=== PATIENT | female | born 1940 | race Caucasian/White ===

== ENCOUNTER → 2017-11-12 | Outpatient (CLI) | payer MEDICARE ==
[~2017-11-12] MED LIST: ASPI-555 PO; CAPT25TA3 PO; FURO-151 PO; GABA100C PO; HYDR-4153 PO; HYDR25TA PO; LANS30CA53 PO; LOVA40TA2 PO; METOPROL PO; PANT40TA25 PO; PRAS1TAB3 PO; SUCR1ORA3 PO; [UNRECOGNIZED DRUG - OTHER] PO
== END | disposition home or self-care (01) ==
LOC: RAH 12:44
PROVIDERS: ATTEND Internal Medicine
DX: Z12.31 Encounter for screening mammogram for malignant neoplasm of breast (principal)
CPT/HCPCS: 77067

== ENCOUNTER 2019-10-25 12:48 | Emergency (ER) | payer MEDICARE ==
[2019-10-25 14:47] LABS: BASOPHILS % (AUTO) 0.3 % (0.0-5.0); EOSINOPHILS % (AUTO) 2.3 % (0.0-8.0); HEMATOCRIT 40.9 % (36-48); LYMPHOCYTES % (AUTO) 27.8 % (21.0-51.0); MEAN CORPUSCULAR HEMOGLOBIN 30.6 pg (27.0-33.0); MEAN CORPUSCULAR HGB CONC 31.8 g/dL (32.0-36.0); MEAN CORPUSCULAR VOLUME 96.2 fL (79-99); MONOCYTES % (AUTO) 7.6 % (3.0-13.0); NEUTROPHILS % (AUTO) 61.6 % (40.0-77.0); PLATELET COUNT (AUTO) 238 K/uL (130-400); RED BLOOD CELL COUNT(AUTO) 4.25 MIL/uL (4.00-5.50); RED CELL DISTRIBUTION WIDTH 13.1 % (11.0-15.5); WHITE BLOOD COUNT (AUTO) 10.7 K/uL (4.8-10.8)
[2019-10-25 15:07] LABS: CREATININE 2.1 mg/dL (0.5-1.5); POTASSIUM 4.3 mmol/L (3.5-5.1)
[2019-10-25 15:20] LABS: HEMOGLOBIN A1C 6.6 % (4.0-6.0)
== END 2019-10-25 15:45 | disposition home or self-care (01) ==
LOC: EDH 12:48
DX: L03.119 Cellulitis of unspecified part of limb (principal); I10 Essential (primary) hypertension; E78.00 Pure hypercholesterolemia, unspecified; E11.9 Type 2 diabetes mellitus without complications
CPT/HCPCS: 36415; 73620; 80048; 83036; 85025

== ENCOUNTER → 2019-12-22 | Outpatient (CLI) | payer MEDICARE ==
[~2019-12-22] MED LIST changes: +CALC-190 PO; -CAPT25TA3 PO; +CEPH250 PO; -HYDR25TA PO; +OMEP20TA25 PO; +VITA400T9 PO
== END | disposition home or self-care (01) ==
LOC: RAH 08:43
PROVIDERS: ATTEND Internal Medicine
DX: Z12.31 Encounter for screening mammogram for malignant neoplasm of breast (principal)
CPT/HCPCS: 77067

== ENCOUNTER 2020-01-02 19:29 | Emergency (ER) | payer MEDICARE ==
[2020-01-02] MEDS ORDERED: DEXAMETHASONE SOD PHOSPHATE 4 MG/ML 1ML VIAL ONE (19:55)
[2020-01-02] MEDS ORDERED: TRAMADOL HCL 50 MG TABLET ONE (19:57)
[2020-01-02 20:22] LABS: BASOPHILS % (AUTO) 0.3 % (0.0-5.0); EOSINOPHILS % (AUTO) 0.1 % (0.0-8.0); LYMPHOCYTES % (AUTO) 12.9 % (21.0-51.0); MEAN CORPUSCULAR HEMOGLOBIN 29.7 pg (27.0-33.0); MEAN CORPUSCULAR HGB CONC 32.1 g/dL (32.0-36.0); MEAN CORPUSCULAR VOLUME 92.7 fL (79-99); MONOCYTES % (AUTO) 7.5 % (3.0-13.0); NEUTROPHILS % (AUTO) 78.7 % (40.0-77.0); PLATELET COUNT (AUTO) 267 K/uL (130-400); RED BLOOD CELL COUNT(AUTO) 4.64 MIL/uL (4.00-5.50); RED CELL DISTRIBUTION WIDTH 14.2 % (11.0-15.5); WHITE BLOOD COUNT (AUTO) 14.5 K/uL (4.8-10.8)
[2020-01-02 20:44] LABS: CREATININE 1.7 mg/dL (0.5-1.5); POTASSIUM 3.3 mmol/L (3.5-5.1)
[2020-01-02 20:49] LABS: ALBUMIN 2.8 g/dL (3.5-5.0); BILIRUBIN,TOTAL 0.7 mg/dL (0.2-1.0); TOTAL PROTEIN, SERUM 7.6 g/dL (6.0-8.3)
== END 2020-01-02 21:48 | disposition home or self-care (01) ==
LOC: EDH 19:29
DX: M25.531 Pain in right wrist (principal); M79.641 Pain in right hand; E11.9 Type 2 diabetes mellitus without complications; I10 Essential (primary) hypertension; E78.00 Pure hypercholesterolemia, unspecified; Z79.899 Other long term (current) drug therapy; W18.39XA Other fall on same level, initial encounter; Y93.89 Activity, other specified; Y92.091 Bathroom in other non-institutional residence as the place of occurrence of the external cause; Y99.8 Other external cause status
CPT/HCPCS: 36415; 80053; 85025; 96372; 99283; J1100

== ENCOUNTER 2020-04-14 20:40 | Inpatient (IN) | payer MEDICARE ==
[~2020-04-14] VITALS: Ht 175.3 cm; Wt 109.3 kg
[~2020-04-14 20:40] MED LIST changes: -ASPI-555 PO; +ASPI-556 PO; -PANT40TA25 PO; +PANT40TA54 PO
[2020-04-14 21:17] LABS: BASOPHILS % (AUTO) 0.5 % (0.0-5.0); EOSINOPHILS % (AUTO) 1.1 % (0.0-8.0); HEMATOCRIT 44.3 % (36-48); LYMPHOCYTES % (AUTO) 4.8 % (21.0-51.0); MEAN CORPUSCULAR HEMOGLOBIN 29.3 pg (27.0-33.0); MEAN CORPUSCULAR HGB CONC 31.8 g/dL (32.0-36.0); MEAN CORPUSCULAR VOLUME 92.1 fL (79-99); MONOCYTES % (AUTO) 2.8 % (3.0-13.0); NEUTROPHILS % (AUTO) 90.1 % (40.0-77.0); PLATELET COUNT (AUTO) 347 K/uL (130-400); RED BLOOD CELL COUNT(AUTO) 4.81 MIL/uL (4.00-5.50); RED CELL DISTRIBUTION WIDTH 14.7 % (11.0-15.5); WHITE BLOOD COUNT (AUTO) 19.2 K/uL (4.8-10.8)
[2020-04-14 21:23] LABS: CREATININE 1.6 mg/dL (0.5-1.5); POTASSIUM 4.1 mmol/L (3.5-5.1)
[2020-04-14 21:28] LABS: ALBUMIN 2.8 g/dL (3.5-5.0); BILIRUBIN,TOTAL 0.4 mg/dL (0.2-1.0); TOTAL PROTEIN, SERUM 7.6 g/dL (6.0-8.3)
[2020-04-14 22:55] LABS: BILIRUBIN,URINE Small (NEGATIVE); COLOR,URINE Dark Yellow (YELLOW); GLUCOSE, URINE (UA) Negative (NEGATIVE); KETONES,URINE Trace mg/dL (NEGATIVE); LEUKOCYTE ESTERASE ,URINE Trace (NEGATIVE); NITRATE,URINE Negative (NEGATIVE); OCCULT BLOOD,URINE Negative (NEGATIVE); PROTEIN,URINE POS 2+ mg/dL (NEGATIVE)
[2020-04-14 22:56] LABS: APPEARANCE,URINE CLOUDY (CLEAR)
[2020-04-14 23:06] LABS: BACTERIA,URINE Few /HPF (None Seen); RBC,URINE None Seen /HPF (0-1); SQUAMOUS EPITHELIAL CELL,UR Many /HPF (0-2); WBC,URINE 0-1 /HPF (0-1)
[2020-04-14] MEDS ORDERED: FUROSEMIDE 10 MG/ML 2ML VIAL ONE (23:45)
[2020-04-15 00:36] LABS: ABG BASE EXCESS 1.8 mmol/L (-2.0-3.0); ABG HCO3 25.7 mmol/L (21.0-28.0); ABG OXYGEN SATURATION 96.1 % (95.0-99.0); ABG PCO2 38 mmHg (32-45)
[2020-04-15] MEDS ORDERED: CEFTRIAXONE SODIUM 1 GM ONE (00:45)
[2020-04-15] MEDS ORDERED: HYDRALAZINE HCL 20 MG/ML VIAL IV PRN (01:30)
[2020-04-15] MEDS ORDERED: ONDANSETRON HCL 4 MG/2 ML VIAL IV PRN (01:30)
[2020-04-15] MEDS ORDERED: MORPHINE SULFATE 2 MG/ML 1ML SYG IV PRN (01:30)
[2020-04-15] MEDS ORDERED: ACETAMINOPHEN 325 MG TAB PO PRN ×2 (01:30)
[2020-04-15] MEDS: CEFTRIAXONE SODIUM 1 GM IV SCH (01:30)
[2020-04-15] MEDS ORDERED: LACTULOSE 20 GM/30 ML UDCUP PO PRN (01:30)
[2020-04-15] MEDS ORDERED: IPRATROPIUM/ALBUTEROL SULFATE 3 ML SOLUTION IH PRN (02:15)
[2020-04-15 04:40] VITALS: BP 142/101
[2020-04-15 06:41] LABS: BASOPHILS % (AUTO) 0.4 % (0.0-5.0); EOSINOPHILS % (AUTO) 1.9 % (0.0-8.0); HEMATOCRIT 40.9 % (36-48); LYMPHOCYTES % (AUTO) 25.2 % (21.0-51.0); MEAN CORPUSCULAR HEMOGLOBIN 29.5 pg (27.0-33.0); MEAN CORPUSCULAR HGB CONC 31.8 g/dL (32.0-36.0); MEAN CORPUSCULAR VOLUME 92.7 fL (79-99); MONOCYTES % (AUTO) 4.6 % (3.0-13.0); NEUTROPHILS % (AUTO) 67.3 % (40.0-77.0); PLATELET COUNT (AUTO) 347 K/uL (130-400); RED BLOOD CELL COUNT(AUTO) 4.41 MIL/uL (4.00-5.50); RED CELL DISTRIBUTION WIDTH 14.8 % (11.0-15.5); WHITE BLOOD COUNT (AUTO) 15.9 K/uL (4.8-10.8)
[2020-04-15 06:49] LABS: CREATININE 1.7 mg/dL (0.5-1.5); POTASSIUM 3.4 mmol/L (3.5-5.1)
[2020-04-15] MEDS: INSULIN HUMULIN R 100 UNIT/ML 3ML SQ SCH ×4 (07:07→20:23)
[2020-04-15 08:14] VITALS: BP 136/68
[2020-04-15] MEDS: FAMOTIDINE 20MG TAB 20 MG TAB PO SCH ×2 (10:33→20:43)
[2020-04-15] MEDS: ENOXAPARIN SODIUM 40 MG/0.4 ML SYRINGE SQ SCH (10:34)
--- NOTE | 2020-04-15 10:39 | NUR ---
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
[2020-04-15 11:45] VITALS: BP 150/69
--- NOTE | 2020-04-15 15:29 | NUR ---
cm note met with patient and states resides at home with daughter Noris, uses rollator walker, and has an electric cart, and a handicap accessible van for transport. daughter noris and her asparagus buncher assist her as needed at home. feels safe to return back to same setting at dc. states no dc needs. Addendum: 04/15/20 at 1531 by THOMAS BRICEÑO CM Amended: Links added.
[2020-04-15 16:00] VITALS: BP 146/68
--- NOTE | 2020-04-15 16:00 | NUR ---
PRIMARY AWARE OF HOME MEDS PEND. TO RESUME
[2020-04-15] MEDS ORDERED: DOCU-116 PO (18:17)
[2020-04-15] MEDS ORDERED: METO-482 PO (18:17)
[2020-04-15] MEDS ORDERED: LOVA40TA2 PO (18:17)
[2020-04-15] MEDS ORDERED: GABA-529 PO (18:17)
[2020-04-15] MEDS ORDERED: ALLO100T PO (18:17)
[2020-04-15] MEDS ORDERED: AEC81 PO (18:17)
[2020-04-15] MEDS ORDERED: OMEP20CA12 PO (18:17)
[2020-04-15] MEDS ORDERED: FURO40TA5 PO (18:17)
[2020-04-15] MEDS ORDERED: HYDR25 PO (18:17)
[2020-04-15 19:00] VITALS: BP 131/74
[2020-04-15 23:25] VITALS: BP 131/67
[2020-04-16] VITALS (7 sets, daily range): BP systolic 122–166; BP diastolic 55–83
[2020-04-16] MEDS: CEFTRIAXONE SODIUM 1 GM IV SCH (01:03)
[2020-04-16 05:24] LABS: MEAN CORPUSCULAR HEMOGLOBIN 28.7 pg (27.0-33.0); MEAN CORPUSCULAR VOLUME 92.6 fL (79-99); RED BLOOD CELL COUNT(AUTO) 4.21 MIL/uL (4.00-5.50); RED CELL DISTRIBUTION WIDTH 14.9 % (11.0-15.5)
[2020-04-16 05:39] LABS: CREATININE 1.3 mg/dL (0.5-1.5); POTASSIUM 3.8 mmol/L (3.5-5.1)
[2020-04-16] MEDS: INSULIN HUMULIN R 100 UNIT/ML 3ML SQ SCH ×4 (05:57→20:45)
[2020-04-16] MEDS: FAMOTIDINE 20MG TAB 20 MG TAB PO SCH ×2 (08:08→20:44)
[2020-04-16] MEDS: ENOXAPARIN SODIUM 40 MG/0.4 ML SYRINGE SQ SCH (08:09)
[2020-04-16] MEDS ORDERED: FUROSEMIDE 40 MG TABLET PO SCH (12:00)
[2020-04-16] MEDS ORDERED: HYDRALAZINE HCL 25 MG TABLET ONE (12:17)
[2020-04-16] MEDS: HYDRALAZINE HCL 25 MG TABLET PO SCH ×2 (12:19→20:44)
[2020-04-16] MEDS ORDERED: DOCUSATE SODIUM 100 MG CAP PO SCH (13:30)
[2020-04-16] MEDS ORDERED: CHOL2000 PO (17:23)
[2020-04-16] MEDS: PANTOPRAZOLE SODIUM 40 MG TABLET.DR PO SCH (20:43)
[2020-04-16] MEDS: METOPROLOL TARTRATE 50 MG TAB PO SCH (20:44)
[2020-04-16] MEDS: GABAPENTIN 100 MG CAPSULE PO SCH (20:44)
[2020-04-16] MEDS ORDERED: ATORVASTATIN CALCIUM 10 MG TABLET PO SCH (21:00)
[2020-04-17] MEDS: CEFTRIAXONE SODIUM 1 GM IV SCH (01:49)
[2020-04-17 04:20] VITALS: BP 127/69
[2020-04-17] MEDS: INSULIN HUMULIN R 100 UNIT/ML 3ML SQ SCH (05:40)
[2020-04-17 08:00] VITALS: BP 108/68
[2020-04-17] MEDS ORDERED: CEFD300C3 PO (08:30)
[2020-04-17] MEDS: PANTOPRAZOLE SODIUM 40 MG TABLET.DR PO SCH (08:41)
[2020-04-17] MEDS: METOPROLOL TARTRATE 50 MG TAB PO SCH (08:41)
[2020-04-17] MEDS: GABAPENTIN 100 MG CAPSULE PO SCH (08:42)
[2020-04-17] MEDS: ENOXAPARIN SODIUM 40 MG/0.4 ML SYRINGE SQ SCH (08:43)
[2020-04-17] MEDS: HYDRALAZINE HCL 25 MG TABLET PO SCH ×2 (08:43→08:44)
[2020-04-17] MEDS ORDERED: ASPIRIN 81 MG EC TAB PO SCH (09:00)
[2020-04-17] MEDS ORDERED: ALLOPURINOL 100 MG TABLET PO SCH (09:00)
[2020-04-17] MEDS ORDERED: DOCUSATE SODIUM 100 MG CAP PO SCH (09:00)
[2020-04-17] MEDS ORDERED: FUROSEMIDE 40 MG TABLET PO SCH (09:00)
[2020-04-17 11:30] VITALS: BP 139/67
--- NOTE | 2020-04-17 12:19 | NUR ---
DISCHARGE INSTRUCTION PROVIDED TO PATIENT. PATIENT VERBALIZED UNDERSTANDING
[2020-04-18] MEDS ORDERED: FUROSEMIDE 40 MG TABLET PO SCH (09:00)
== END 2020-04-17 12:01 | disposition home or self-care (01) | DRG 291 ==
LOC: EDH 20:40 → EDHIP 04-15 01:22 → OBSVTOIN 04-15 01:22 → 4DH 04-15 02:52
PROVIDERS: ADMIT Hospitalist; ATTEND Hospitalist
DX: I13.0 Hypertensive heart and chronic kidney disease with heart failure and stage 1 through stage 4 chronic kidney disease, or unspecified chronic kidney disease (principal); I50.33 Acute on chronic diastolic (congestive) heart failure; N39.0 Urinary tract infection, site not specified; E11.22 Type 2 diabetes mellitus with diabetic chronic kidney disease; E78.5 Hyperlipidemia, unspecified; N18.9 Chronic kidney disease, unspecified; Z96.652 Presence of left artificial knee joint; Z83.3 Family history of diabetes mellitus; Z82.49 Family history of ischemic heart disease and other diseases of the circulatory system
CPT/HCPCS: 36415; 36600; 71045; 71250; 78582; 80048; 80053; 81001; 82550; 82803; 82948; 83605; 83880; 84443; 84484; 85025; 85027; 85378; 87040; 87088; 93005; 93306; 93356; 93970; 94664; 97039; A9540; A9558; G0378; J0360; J0696; J1650; J1940

== ENCOUNTER → 2020-12-08 | Outpatient (CLI) | payer MEDICARE ==
[~2020-12-08] MED LIST changes: +AEC81 PO; +ALLO100T PO; -ASPI-556 PO; -CALC-190 PO; +CEFD300C3 PO; -CEPH250 PO; +CHOL2000 PO; +DOCU-116 PO; -FURO-151 PO; +FURO40TA5 PO; +GABA-529 PO; -GABA100C PO; -HYDR-4153 PO; +HYDR25 PO; -LANS30CA53 PO; +METO-482 PO; -METOPROL PO; +OMEP20CA12 PO; -OMEP20TA25 PO; -PANT40TA54 PO; -SUCR1ORA3 PO; -[UNRECOGNIZED DRUG - OTHER] PO
== END | disposition home or self-care (01) ==
LOC: RAH 08:46
PROVIDERS: ATTEND Internal Medicine
DX: R92.2 Inconclusive mammogram (principal); N61.0 Mastitis without abscess
CPT/HCPCS: 76641; 77066

== ENCOUNTER 2021-07-31 05:38 | Day surgery (SDC) | payer MEDICARE ==
[~2021-07-31] VITALS: Ht 172.7 cm; Wt 108.9 kg
[~2021-07-31 05:38] MED LIST changes: -CEFD300C3 PO; -CHOL2000 PO; +HYDR-4153 PO; +SITA25TA5 PO
[2021-07-31] MEDS ORDERED: 0.9%NACL 1000ML 1,000 ML IV ONE (06:19)
[2021-07-31 06:41] VITALS: BP 149/78
[2021-07-31] MEDS ORDERED: PROPOFOL 10 MG/ML 20ML VIAL IV ONE ×2 (07:02→09:53)
[2021-07-31] MEDS ORDERED: LIDOCAINE HCL 1% 20 ML VIAL ONE (07:03)
[2021-07-31] MEDS ORDERED: VITAMIN D (07:12)
[2021-07-31] MEDS ORDERED: VITAMIN D2 PO (07:13)
[2021-07-31] MEDS ORDERED: EPHEDRINE SULFATE 50 MG/ML AMPULE ONE (07:16)
[2021-07-31 10:11] VITALS: BP 122/67
[2021-07-31 10:16] VITALS: BP 136/62
[2021-07-31 10:21] VITALS: BP 126/58
[2021-07-31 10:26] VITALS: BP 142/84
== END 2021-07-31 10:40 | disposition home or self-care (01) ==
LOC: ENDO 05:38 → DAH 05:38 → ENDO 10:40
PROVIDERS: ATTEND Internal Medicine
DX: K22.2 Esophageal obstruction (principal); Z20.822 Contact with and (suspected) exposure to COVID-19; I10 Essential (primary) hypertension; E78.5 Hyperlipidemia, unspecified; K31.89 Other diseases of stomach and duodenum; K21.9 Gastro-esophageal reflux disease without esophagitis; E66.9 Obesity, unspecified; M19.90 Unspecified osteoarthritis, unspecified site; M81.0 Age-related osteoporosis without current pathological fracture; M10.9 Gout, unspecified; Z98.890 Other specified postprocedural states; Z90.49 Acquired absence of other specified parts of digestive tract; Z90.89 Acquired absence of other organs; Z90.710 Acquired absence of both cervix and uterus
CPT/HCPCS: 43248; 82948 ×2; 87635; 93005; A4215 ×2; A4221; A4222; A4223; A4606; A4620; A4657; A4663; C9803; J2704 ×2; J7030; J3490

== ENCOUNTER 2021-08-21 08:53 | Day surgery (SDC) | payer MEDICARE ==
[~2021-08-21] VITALS: Ht 175.3 cm; Wt 108.9 kg
[~2021-08-21 08:53] MED LIST changes: +0.9%NACL 1000ML 1,000 ML IV ONE; +VITAMIN D2 PO
[2021-08-21] MEDS ORDERED: PROPOFOL 10 MG/ML 20ML VIAL IV ONE (10:06)
[2021-08-21 10:11] VITALS: BP 154/83
[2021-08-21 10:25] VITALS: BP 153/73
[2021-08-21 10:30] VITALS: BP 150/70
[2021-08-21 10:35] VITALS: BP_SYST 127; BP_DIAS 60; BP_DIAS 76
[2021-08-21 10:40] VITALS: BP 124/72
[2021-08-21 10:55] VITALS: BP 126/62
== END 2021-08-21 10:55 | disposition home or self-care (01) ==
LOC: DAH 08:53 → ENDO 08:53
PROVIDERS: ATTEND Internal Medicine
DX: K22.2 Esophageal obstruction (principal); Z20.822 Contact with and (suspected) exposure to COVID-19; K31.89 Other diseases of stomach and duodenum; K21.9 Gastro-esophageal reflux disease without esophagitis; I10 Essential (primary) hypertension; E11.9 Type 2 diabetes mellitus without complications; M81.0 Age-related osteoporosis without current pathological fracture; E66.9 Obesity, unspecified; M19.90 Unspecified osteoarthritis, unspecified site; M10.9 Gout, unspecified; E78.5 Hyperlipidemia, unspecified; Z90.89 Acquired absence of other organs; Z98.890 Other specified postprocedural states; Z90.710 Acquired absence of both cervix and uterus; Z79.82 Long term (current) use of aspirin; Z79.899 Other long term (current) drug therapy
CPT/HCPCS: 43248; 82948; 87635; A4215 ×2; A4221; A4222; A4223; A4606; A4620; A4663; C9803; J2704; J7030

== ENCOUNTER 2021-09-11 07:19 | Day surgery (SDC) | payer MEDICARE ==
[~2021-09-11] VITALS: Ht 172.7 cm; Wt 108.9 kg
[2021-09-11] VITALS (7 sets, daily range): BP systolic 137–142; BP diastolic 66–71
[~2021-09-11 07:19] MED LIST changes: -VITAMIN D2 PO
[2021-09-11] MEDS ORDERED: TRIAMCINOLONE ACETONIDE 40 MG/ML 1ML VIAL INJ SCH (08:00)
[2021-09-11] MEDS ORDERED: SITA25TA5 PO (08:22)
[2021-09-11] MEDS ORDERED: PROPOFOL 10 MG/ML 20ML VIAL IV ONE (09:18)
== END 2021-09-11 10:25 | disposition home or self-care (01) ==
LOC: DAH 07:19 → ENDO 07:19
PROVIDERS: ATTEND Internal Medicine
DX: K22.2 Esophageal obstruction (principal); R13.10 Dysphagia, unspecified; K31.89 Other diseases of stomach and duodenum; I12.9 Hypertensive chronic kidney disease with stage 1 through stage 4 chronic kidney disease, or unspecified chronic kidney disease; N18.4 Chronic kidney disease, stage 4 (severe); E78.5 Hyperlipidemia, unspecified; K21.9 Gastro-esophageal reflux disease without esophagitis; M19.90 Unspecified osteoarthritis, unspecified site; M81.0 Age-related osteoporosis without current pathological fracture; E66.9 Obesity, unspecified; Z90.710 Acquired absence of both cervix and uterus; Z96.659 Presence of unspecified artificial knee joint; Z90.89 Acquired absence of other organs; Z79.899 Other long term (current) drug therapy; Z20.822 Contact with and (suspected) exposure to COVID-19
CPT/HCPCS: 43236; 43248; 87635; A4215 ×2; A4221; A4222; A4223; A4606; A4620; A4657; A4663; C9803; J2704; J3301 ×2; J7030

== ENCOUNTER → 2023-03-14 | Outpatient (CLI) | payer MEDICARE ==
[~2023-03-14] MED LIST changes: -0.9%NACL 1000ML 1,000 ML IV ONE; -HYDR-4153 PO; -HYDR25 PO
== END | disposition home or self-care (01) ==
LOC: RAH 08:28
PROVIDERS: ATTEND Internal Medicine
DX: Z12.31 Encounter for screening mammogram for malignant neoplasm of breast (principal)
CPT/HCPCS: 77067

== ENCOUNTER → 2023-11-11 | Outpatient (CLI) | payer MEDICARE | END | disposition home or self-care (01) | LOC: RAH 12:51 | PROVIDERS: ATTEND Internal Medicine | DX: Z13.820 Encounter for screening for osteoporosis (principal); M81.0 Age-related osteoporosis without current pathological fracture | CPT/HCPCS: 77080 ==

== ENCOUNTER → 2024-03-25 | Outpatient (CLI) | payer MEDICARE | END | disposition home or self-care (01) | LOC: RAH 11:17 | PROVIDERS: ATTEND Internal Medicine | DX: Z12.31 Encounter for screening mammogram for malignant neoplasm of breast (principal) | CPT/HCPCS: 77067 ==

== ENCOUNTER → 2025-03-04 | Outpatient (CLI) | payer MEDICARE ==
--- NOTE | 2025-03-04 15:36 | HMCIMG ---
US SOFT TISSUE NECK INDICATION: LOCALIZED SWELLING, MASS AND LUMP FINDINGS: Soft tissue neck ultrasound study was performed with specific attention given to the region of interest of the left neck. The lesion of interest, there is flow demonstrated in the branch of subclavian vein. No other mass lesion is identified. IMPRESSION: No acute finding.
== END | disposition home or self-care (01) ==
LOC: RAH 14:26
PROVIDERS: ATTEND Internal Medicine
DX: R22.9 Localized swelling, mass and lump, unspecified (principal)
CPT/HCPCS: 76536

== ENCOUNTER 2025-03-29 11:12 | Emergency (ER) | payer MEDICARE ==
[~2025-03-29] VITALS: Ht 175.3 cm; Wt 99.8 kg
[~2025-03-29 11:12] MED LIST changes: -CEFP200T14 PO; -CYAN100084 PO; -EMPA25TA PO; -OLME40TA18 PO; -ROSU10TA72 PO
--- NOTE | 2025-03-29 11:57 | EKG ---
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
--- NOTE | 2025-03-29 12:04 | ERN ---
General Chief Complaint: Weakness Stated Complaint: WEAKNESS,DIZZY Time Seen by MD: 11:13 History of Present Illness Initial Comments 75-year-old female who presents for generalized weakness. According to family the patient has been adding and subtracting her diuretic, also been changing her blood pressure medications. Over the last few days she has been so weak that she is having a hard time standing and walking. No fevers vomiting or other symptoms. Allergies: Coded Allergies: No Known Drug Allergies (Unverified Allergy, Unknown, 08/05/16) Home Meds Reported Medications Cyanocobalamin (Vitamin B-12) (B-12) 1,000 Mcg Tablet.er, 1 TAB PO DAILY for 30 Days, #30 TAB 0 Refills 03/29/25 Olmesartan Medoxomil (Olmesartan Medoxomil) 40 Mg Tablet, 1 TAB PO DAILY for 30 Days, #30 TAB 0 Refills 03/29/25 Empagliflozin (Jardiance) 25 Mg Tablet, 1 TAB PO DAILY for 30 Days, #30 TAB 0 Refills 03/29/25 Rosuvastatin Calcium (Rosuvastatin Calcium) 10 Mg Tablet, 20 MG PO DAILY, TAB 03/29/25 Sitagliptin Phosphate (Januvia) 25 Mg Tablet, 25 MG PO DAILY, TAB 09/11/21 Docusate Sodium (Colace) 100 Mg Capsule, 100 MG PO DAILY, CAP 07/30/21 Aspirin (ASPIRIN 81 MG ECTAB) 81 Mg Ectab, 81 MG PO DAILY, TAB.EC 04/15/20 Lovastatin (Lovastatin) 40 Mg Tablet, 40 MG PO HS 04/15/20 Furosemide (Furosemide) 40 Mg Tablet, 40 MG PO QODAY 04/15/20 Metoprolol Tartrate (Lopressor) 100 Mg Tablet, 100 MG PO BID 04/15/20 Gabapentin (Gabapentin) 100 Mg Capsule, 100 MG PO BID 04/15/20 Omeprazole (Omeprazole) 20 Mg Capsule.dr, 20 MG PO BID 04/15/20 Allopurinol (Allopurinol) 100 Mg Tablet, 200 MG PO DAILY 04/15/20 Vitamin E Mixed (Vitamin E) 400 Unit Tablet, 400 UNIT PO DAILY, TAB 11/03/19 Prasterone (Dhea)/Calcium Carb (Dhea 50 mg Tablet) 1 Each Tablet, 1 EACH PO DAILY, TAB 08/05/16 Past Medical History Past Medical History: Constipation, Diabetes-Type II, Hypertension Past Surgical History: Other ROS Dictation CONSTITUTIONAL: No chills, no fever, no weakness, no diaphoresis, no malaise. HEAD/FACE: No signs of trauma. EENT: No eye pain, no blurred vision, no tearing, no double vision, no ear pain, no ear discharge, no nose pain, no nasal congestion, no throat pain, no throat swelling, no mouth pain. RESPIRATORY: No cough, no orthopnea, no SOB, no stridor, no wheezing. CARDIOVASCULAR: No chest pain, no edema, no palpitations, no syncope. GASTROINTESTINAL/ABDOMINAL: No abdominal pain, no constipation, no diarrhea, no nausea, no vomiting. GENITOURINARY: No abnormal discharge, no dysuria, no frequent urination, no hematuria. No complaints of pain in the genitals. MUSCULOSKELETAL: No back pain, no gout, no joint pain, no joint swelling, no muscle pain, no muscle stiffness, no neck pain. INTEGUMENTARY: No change in color, no change in hair/nails, no dryness, no lesion, no lumps, no rash. NEUROLOGICAL/PSYCH: No anxiety, not depressed, no emotional problem, no headache, no numbness, no pre-existing deficit, no history of seizures, no tremors, no weakness. HEMATOLOGIC/LYMPHATIC: Not anemic, no history of blood clots, no apparent bleeding, no bruising, glands not swollen. All Systems Negative, Except as Noted. Physical Exam Physical Exam Dictation VITAL SIGNS: Reviewed. GENERAL APPEARANCE: Alert, oriented x3, no acute distress, obese. HEAD AND FACE: Non-traumatic. EYES: PERRL, pink conjunctivas, eyelid no trauma, anterior chamber clear. EARS: Pinnas intact and no signs of trauma or erythema. Ear canals clear and no discharge. TMs no erythema. NOSE: No discharge, no bleeding. OROPHARYNX: Mouth normal, teeth no caries, tongue pink. Pharynx clear, no erythema. Tonsils no exudates, no abscesses noted. Mucous membrane moist. NECK: Supple, non-tender, no thyromegaly, no masses, no JVD, no bruits. BREAST: Deferred. CHEST: No tenderness, no crepitus, no paradoxical movement, no retractions. LUNGS: Clear, well-ventilated, symmetric, no rales, no wheezing, no rhonchi, no stridor, good breath sounds bilaterally. HEART: Regular rate, regular rhythm, no murmur, no gallops. VASCULAR: No peripheral edema. ABDOMEN: Soft, positive bowel sounds, nondistended, no guarding, nontender, no rebound, no masses no hepatomegaly, no splenomegaly, no Pena's sign, no hernias. RECTAL: Deferred. GENITAL: Deferred. NEUROLOGICAL: Normal speech, gross motor function intact, gross sensory function intact. MUSCULOSKELETAL: Neck nontender, full range of motion, back nontender, full r dolores of motion. EXTREMITIES: Nontender, full range of motion. SKIN: Color pink, dry, no turgor, no rash, no lacerations, no abrasions, no contusions. LYMPHATICS: Deferred. Results Laboratory and Microbiology Lab and Micro Result Laboratory Tests Test 03/29/25 11:59 03/29/25 13:27 White Blood Count 8.9 K/uL (4.8-10.8) Red Blood Count 5.14 MIL/uL (4.00-5.50) Hemoglobin 15.7 g/dL (12.0-16.0) Hematocrit 49.2 % (36-48) H Mean Corpuscular Volume 95.7 fL (79-99) Mean Corpuscular Hemoglobin 30.5 pg (27.0-33.0) Mean Corpuscular Hemoglobin Concent 31.9 g/dL (32.0-36.0) L Red Cell Distribution Width 14.4 % (11.0-15.5) Platelet Count 241 K/uL (130-400) Mean Platelet Volume 11.0 fL (7.5-10.5) H Immature Granulocyte % (Auto) 0.2 % (0-1) Neutrophils (%) (Auto) 47.6 % (40.0-77.0) Lymphocytes (%) (Auto) 43.8 % (21.0-51.0) Monocytes (%) (Auto) 6.4 % (3.0-13.0) Eosinophils (%) (Auto) 1.6 % (0.0-8.0) Basophils (%) (Auto) 0.4 % (0.0-5.0) Neutrophils # (Auto) 4.2 K/uL (1.8-7.7) Lymphocytes # (Auto) 3.9 K/uL (1.0-4.8) Monocytes # (Auto) 0.6 K/uL (0.1-1.0) Eosinophils # (Auto) 0.14 K/uL (0.00-0.70) Basophils # (Auto) 0.04 K/uL (0.00-0.20) Absolute Immature Granulocyte (auto 0.02 K/uL (0-1) Nucleated Red Blood Cells 0.0 % (0.0-0.19) Sodium Level 145 mmol/L (136-145) Potassium Level 4.1 mmol/L (3.5-5.1) Chloride Level 105 mmol/L (101-111) Carbon Dioxide Level 28 mmol/L (21-32) Blood Urea Nitrogen 17 mg/dL (7-18) Creatinine 1.3 mg/dL (0.5-1.0) H Glomerular Filtration Rate Calc 40 mL/min (>90) Random Glucose 134 mg/dL (70-105) H Total Calcium 9.8 mg/dL (8.5-10.1) Magnesium Level 2.10 mg/dL (1.80-2.40) Total Creatine Kinase 34 U/L (21-232) Troponin I High Sensitivity 5.1 ng/L (4-50) B-Type Natriuretic Peptide 26 pg/mL (0-100) Urine Color LIGHT-YELLOW (YELLOW) Urine Appearance CLOUDY (CLEAR) H Urine pH 5.5 (5.0-8.0) Urine Specific [place] 1.028 (1.001-1.031) Urine Protein NEGATIVE mg/dL (NEGATIVE) Urine Glucose (UA) >=1000 mg/dL (NEGATIVE) H Urine Ketones NEGATIVE mg/dL (NEGATIVE) Urine Occult Blood +- (TRACE) (NEGATIVE) H Urine Nitrate NEGATIVE (NEGATIVE) Urine Bilirubin NEGATIVE mg/dL (NEGATIVE) Urine Urobilinogen 0.2 mg/dL (0.2-1.0) Urine Leukocyte Esterase 250 Sveta/uL (NEGATIVE) H MDM CC: Generalized weakness and fatigue Historian: Patient Comorbidities: Advanced age, hypertension, diabetes Limitations by social determinants of health: None Differential diagnosis: Infectious, he CS, dehydration, other. EKG: Sinus rhythm, rate of 82 normal axis good R-wave progression intervals are stable no STEMI. Independently interpreted by me. Vital signs: Mild hypertension otherwise stable remained stable here in the ER. Labs show no leukocytosis or anemia. Chemistry shows a creatinine 1.3, no at baseline, the rest of the electrolytes are okay troponin and BNP are normal. UA: 250 leuk esterase occult blood possibly an infection Patient received IV Rocephin in the ER. She also received 1 L of lactated Ringer's I had a long conversation with the family. She was possibly mildly dehydrated and has a very mild UTI. No signs of pyelonephritis SIRS or sepsis or any life threats. Cardiac workup is unremarkable. Vital signs are stable. I offered the patient admission, but they do not want any admission at this time. The patient reports she feels much better, and at her age she prefers to be home. We will DC and recommend PCP follow up. We will give a prescription for cefpodoxime. ED Course Orders Procedure Category Date Status Time Cardiac Panel LAB 03/29/25 Complete 11:36 Cbc With Differential LAB 03/29/25 Complete 11:36 Basic Metabolic Panel LAB 03/29/25 Complete 11:36 Magnesium LAB 03/29/25 Complete 11:36 Urinalysis Profile LAB 03/29/25 In Process 11:36 Lactated Ringers PHA 03/29/25 Complete 1000ml (Lactated 12:00 12 Lead Ekg Tracing- EKG 03/29/25 Complete Technical 11:36 Chest 1vw RAD 03/29/25 Resulted 11:36 B-Type Natriuretic LAB 03/29/25 Complete Peptide 12:25 Culture Urine BRENNEN 03/29/25 Logged 13:46 Current Medications Medications (Trade) Dose Ordered Sig/[place] Route PRN Reason Start Time Stop Time Status Last Admin Dose Admin Lactated Ringer's 1,000 ml @ 0 mls/hr ONCE ONCE IV 03/29/25 12:00 03/29/25 12:01 DC 03/29/25 12:31 Vital Signs Date Time Temp Pulse Resp B/P (MAP) Pulse Ox O2 Delivery O2 Flow Rate FiO2 03/29/25 12:07 98.1 74 18 145/58 96 Room Air* 0 21 03/29/25 11:31 98.6 96 20 157/98 98 Room Air DX & DISP Disposition: Discharge Departure Impression: Primary Impression: UTI (urinary tract infection) Additional Impressions: Fatigue, Mild dehydration Condition: Stable Scripts Cefpodoxime Proxetil (Cefpodoxime Proxetil) 200 Mg Tablet 200 MG PO BID for 7 Days, #14 TAB Prov: RADHA HERMAN DO 03/29/25 Additional Instructions: Your symptoms are consistent with a mild dehydration and a urinary tract infection. She had vital signs have been stable here in the ER. Your blood work (CBC, metabolic panel, CK, troponin) is unremarkable. Your urinalysis does show some leukocyte esterase consistent with an infection. You received IV Rocephin here in the ER. I have also prescribed cefpodoxime, which is an antibiotic. As we discussed, take it for the next 3-7 days depen ding on symptoms. Be sure to follow up with the primary doctor for further evaluation. Return to the emergency department as needed. Referrals: LATESHA NICOLE (PCP) RADHA HERMAN DO March 29, 2025 12:04
[2025-03-29 12:11] LABS: BASOPHILS # (AUTO) 0.04 K/uL (0.00-0.20); BASOPHILS % (AUTO) 0.4 % (0.0-5.0); EOSINOPHILS # (AUTO) 0.14 K/uL (0.00-0.70); EOSINOPHILS % (AUTO) 1.6 % (0.0-8.0); HEMATOCRIT 49.2 % (36-48); IMMATURE GRANULOCYTE ABSOLUTE 0.02 K/uL (0-1); LYMPHOCYTES # (AUTO) 3.9 K/uL (1.0-4.8); LYMPHOCYTES % (AUTO) 43.8 % (21.0-51.0); MEAN CORPUSCULAR HEMOGLOBIN 30.5 pg (27.0-33.0); MEAN CORPUSCULAR HGB CONC 31.9 g/dL (32.0-36.0); MEAN CORPUSCULAR VOLUME 95.7 fL (79-99); MONOCYTES # (AUTO) 0.6 K/uL (0.1-1.0); MONOCYTES % (AUTO) 6.4 % (3.0-13.0); NEUTROPHILS # (AUTO) 4.2 K/uL (1.8-7.7); NEUTROPHILS % (AUTO) 47.6 % (40.0-77.0); PLATELET COUNT (AUTO) 241 K/uL (130-400); RED BLOOD CELL COUNT(AUTO) 5.14 MIL/uL (4.00-5.50); RED CELL DISTRIBUTION WIDTH 14.4 % (11.0-15.5); WHITE BLOOD COUNT (AUTO) 8.9 K/uL (4.8-10.8)
[2025-03-29 12:20] LABS: CREATININE 1.3 mg/dL (0.5-1.0); POTASSIUM 4.1 mmol/L (3.5-5.1)
[2025-03-29] MEDS ORDERED: ROSU10TA72 PO (12:24)
[2025-03-29] MEDS ORDERED: OLME40TA18 PO (12:26)
[2025-03-29] MEDS ORDERED: EMPA25TA PO (12:26)
[2025-03-29] MEDS ORDERED: CYAN100084 PO (12:27)
[2025-03-29 12:28] LABS: MAGNESIUM 2.1 mg/dL (1.80-2.40)
[2025-03-29] MEDS: LACTATED RINGERS 1000ML 1,000 ML IV ONE (12:31)
--- NOTE | 2025-03-29 12:34 | HMCIMG ---
Exam Type: CHEST 1VW Clinical Information: chest pain Comparison: None Findings: The lungs are clear of infiltrates. The heart is enlarged. Bony and soft tissue structures of the chest wall are unremarkable. IMPRESSION: Cardiomegaly. Clear lungs.
[2025-03-29 13:38] LABS: APPEARANCE,URINE CLOUDY (CLEAR); BILIRUBIN,URINE NEGATIVE (NEGATIVE); COLOR,URINE LIGHT-YELLOW (YELLOW); GLUCOSE, URINE (UA) >=1000 mg/dL (NEGATIVE); KETONES,URINE NEGATIVE (NEGATIVE); LEUKOCYTE ESTERASE ,URINE 250 Leu/uL (NEGATIVE); NITRATE,URINE NEGATIVE (NEGATIVE); PH,URINE 5.5 (5.0-8.0); PROTEIN,URINE NEGATIVE (NEGATIVE); UROBILINOGEN,URINE 0.2 mg/dL (0.2-1.0)
[2025-03-29 13:46] LABS: ADD UA MICROSCOPIC YES
[2025-03-29] MEDS ORDERED: CEFP200T14 PO (14:16)
[2025-03-29] MEDS: cefTRIAXone 1G VIAL IVPB ONE (14:20)
[2025-03-29 14:21] LABS: MUCUS,URINE RARE LPF (None Seen); SQUAMOUS EPITHELIAL CELL,UR MOD /HPF (0-2)
[2025-03-29 14:26] VITALS: BP 156/55; PULSE 72; RESP 18; TEMP 98.1; O2SAT 96
== END 2025-03-29 14:47 | disposition home or self-care (01) ==
LOC: EDH 11:12
DX: N39.0 Urinary tract infection, site not specified (principal); R53.83 Other fatigue; E86.0 Dehydration; E11.9 Type 2 diabetes mellitus without complications; Z79.82 Long term (current) use of aspirin; Z79.84 Long term (current) use of oral hypoglycemic drugs; Z79.899 Other long term (current) drug therapy
CPT/HCPCS: 99285; 96374; 77067; 71045; 96361; 82550; 83735; 84484; 80048; 83880; 85025; 87086; 81001; 36415; 93005; J7120; J0696

== ENCOUNTER → 2025-03-29 | Outpatient (CLI) | payer MEDICARE ==
[~2025-03-29] MED LIST changes: +CEFP200T14 PO; +CYAN100084 PO; +EMPA25TA PO; +OLME40TA18 PO; +ROSU10TA72 PO
--- NOTE | 2025-03-30 09:40 | HMCIMG ---
MAMMO SCREENING BILATERAL HISTORY: Screening mammogram. COMPARISON: 03/25/2024 TECHNIQUE: Bilateral screening mammogram with CAD was performed with craniocaudal and mediolateral oblique projections. FINDINGS: There are scattered areas of fibroglandular density. There is no evidence of a dominant mass, or suspicious microcalcification. There is no evidence of nipple retraction or skin thickening. IMPRESSION: 1. Stable mammogram. Patient was entered into a reminder system with a target due date for their next mammogram. BI-RADS: CATEGORY 2: BENIGN FINDINGS Recommend monthly self breast exam as well as annual clinical examination. A negative x-ray should not delay biopsy if a dominant or clinically suspicious mass is present, since 8-10% of cancers are not identified by mammography. Dense breasts particularly, may obscure an underlying neoplasm. Some of these may be detected clinically and therefore, clinical examination is an essential part of breast evaluation.
== END | disposition home or self-care (01) ==
LOC: RAH 10:37
PROVIDERS: ATTEND Internal Medicine
DX: Z12.31 Encounter for screening mammogram for malignant neoplasm of breast (principal); R92.323 Mammographic fibroglandular density, bilateral breasts
CPT/HCPCS: 77067